=== PATIENT | female | born 1980 | race Caucasian/White ===

== ENCOUNTER 2016-09-03 20:09 | Emergency (ER) | payer BC ==
--- OUTSIDE RECORDS SUMMARY | 2016-09-03 20:37 | XMS REPORT | Continuity of Care Document ---
:1980 Author Organization [facility] ([facility]) Address [address] [place] [address] Phone [phone] Care Team Providers Name Role Phone Moises Dominguez Primary Care Provider [phone] Source Comments This disclosure is being made pursuant to the Care Everywhere program, applicable federal and state laws, and may not contain all informaitonavailable regarding this patient.[facility] ([facility]) Active Allergies and Adverse Reactions Allergen Noted Date Severity Reactions Comments Kiwi 10/31/2013 Angioedema Tongue swelling Other Agent 10/31/2013 Urticaria (Hives) Allergic to the sun Current Medications Prescription Sig. Disp. Refills Start Date End Date Status Take by mouth. Active multivitamin with minerals PO estradiol Take 1 tablet (2 mg 90 tablet 11 05/17/2016 Active (ESTRACE) 2 mg total) by mouth every tablet 12 hours. Increase to 1 Tab every 8 hours when instructed. progesterone (in Inject 1.5 mL 30 mL 6 07/22/2016 Active oil) (PROGESTERONE Intramuscularly IN OIL) 50 mg/mL Daily. 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 FROZEN CYCLE EPISODE IVF Cycle # 2 IOWAant? No This is a 36 y.o. year old female desiring transfer of cryopreserved embryos. complications: Placenta Previa, h/o 2 cesareans Frozen embryos are from autologous oocytes Outcomes of prior fresh IVF cycles: FT repeat Outcomes of prior frozen transfer: None Any difficulty with prior embryo transfer/ uterine sounding? No Comments: charles Degroot - repeat sounding performed after repeat c/s Special considerations: No Further testing needed? No TSH was 1.31 uIU/mL on 05/23/16 Progesterone level in previous cycle adequate? Yes Planned hormone use for endometrium preparation: Estrace - oral and Progesterone in oil - standard 50 mg PLAN FOR EMBRYO DISPOSITION Total number of cryopreserved embryos 11 0 pronuclear stage embryos 11 blastocyst stage embryos Recommendations: Thaw _1__ embryo(s) at the _blast__ stage. Transfer a maximum of _1__ embryos. CYCLE OUTCOME Preop Ultrasound Date: __07/08 (schedule baseline bonding agent ultrasound 5-7 days prior to blastocyst embryo transfer; 3-5 days prior to day 3 ET) Stripe thickness: __6.6 Cyst?___No ; (if cyst >10 mm order progesterone level= ) Other/Problems: Embryo Transfer Transfer of 1 embryos; x easy; Difficult Additional comments: _viable blast__ Other Outcome Test scheduled for (date) _07/22__ at (time & place) _[facility]__ [schedule 12 days after day 3 ET (may vary 11-15 days after ET)] [schedule 10 days after Blastocyst ET (may vary 9-13 days after ET)] Preferred method of test result notification: _X__ cell; [phone] test: ___ positive; QBhCG=__105___; Progesterone=__14.4___ (do not order if on vaginal progesterone) Cycle Review: This cycle, including ultrasounds and blood results, were reviewed and managed by a specialist in Reproductive Endocrinology. 03/11/2014 IVF Fresh Cycle #: 1 Flowsheet [id number] Ofelia Garcia Lupron Dual Trigger Protocol 1980 [address] [facility] [id number] Age: 34 y.o.: Weight: Filed Vitals: 03/11/14 0930 Weight: 83.6 kg (184 lb 4.9 oz) IOWArranty: No Antral Folicle #: >40 (10/31/2013): Metformin: No: TSH was 1.65 uIU/mL on 2013 Infertility Factors: ovulatory dysfunction, possible mild male factor; STD Testing: negative Counsyl Screening? Yes: Partner - Arun Garcia ( ) Results/f/u: NEGATIVE; 04/04/2014 [facility] Control Pill: Necon (for < 200 lbs) Last BCP (date): 05/06 Allergies: is allergic to kiwi and other agent. Lab: [facility]; Pharmacy: [facility] ; ([facility] patients preferred times for labs: 1000am ; U/ S:1000am ) Preferred Patient Contact #: [phone] . Menopur Vial=75 international units/vial (#vials _4_ total) Follistim cartridges: _x2_ 600 ___ 300; total=_1200_ international units Treatment Day 1 2 3 4 5 6 7 8 9 10 11 12 13 14 15 Date:05/09 14 15 16 17 18 19 20 21 22 23 24 25 26 27 FSH (Follistim) (IU) 225 225 225 150 150 150 150 150 150 - HMG (Menopur) (dose in vials) 1 1 1 1 2 2 - Antagon 250 mcg SQ 9:00 a.m. No No Yes Yes Yes No No No No No HCG only 10,000/5,000 HCG 1500 units IM + Lupron 2 mg SQ trigger (40 units) xx USGOR Lupron only 2 mg (40 units) LH + P4 (day after Lupron only trigger) MD reviewer LC [facility] RN initials AN do do JESSICA Patient notified clinic clinic clinic clinic Meds/Misc. E2 Total # > 10 / Total # 0/> 20 12/>20 12/>30 F O L L I C L E S U/S R (mm) 10 10 9 9 15 14x4 13 12x5 11 10 20 18x5 17x3 16 14x2 Total # > 10 / Total # 3/20 9/ >20 9/>30 U/S L (mm) 11x3 10x2 9 15x2 14x3 13 12x2 11 10 9 21 20x2 19 18x2 17 16 12 Endometrial Stripe (mm) 6.6 8.5 10 Luteal support: Progesterone in Oil 50 mg IM [facility]SS handout: provided/reviewed in IVF OR;___N/A hCG/Lupron trigger: date _05/18/14 /time _2029____; Retrieval date _05/20/14___/time:829 /report time: ; RTL report time : Test scheduled for (date) ___06/04/14 at (time & place) ____[facility] Preferred method of test result notification: __x_ cell; Message with results is OK "PIL"=Patient Information Line For Dual Trigger or Lupron Trigger only: Progesterone in Oil 50 mg IM beginning on day of egg retrieval. Continue until 8 weeks gestation. Estrace 2 mg. BID starting on evening of egg retrieval. Continue until 8 weeks gestation. 05/25/14 A9=3012 C8=393.1 06/10/1422=C9=1004 P4=53.8 06/17/14=E2=P4= Testing: Check E2 and P4 on Embryo Transfer day If a Blast ET, recheck levels 1) on test day; then 2) weekly through 6 weeks gestation. If a Day-3 ET, recheck levels 1) in one week; 2) on test day; then 3) weekly through 6 weeks gestation. Results Management: E2: IF E2 is ?200, remain on Estrace 2 mg BID through 8 weeks of gestation and check weekly. IF E2 is <200, ADD Climara patch 0.1 mg (1 patch) every 3 days. DO NOT need to repeat any further E2 levels. P4: IF P4 is ?20 and current dose of progesterone is 50 mg IM daily, then check level weekly through 6 weeks of gestation. Progesterone will continue through 8 weeks of gestation. IF P4 is <20 and already at 50 mg Progesterone in Oil, then increase Progesterone in Oil to 75 mg or add endometrin 100 mg BID vaginally and NO need to recheck any further levels. Estrogen and Progesterone Supplementation will always continue until 8 weeks gestation. Evaluation Date: 03/11/2014; Uterine Sounding: Depth: 7 cm; Curve: anterior Position: Anterior x Midline Posterior Passed easily: Yes; x No: *Use Long Darrin speculum* Cycle Plans Insemination plan:ICSI Inseminate all oocytes: Yes DREW/JUAN R: No Donor Sperm: No Embryo Culture: Day 5 Cryopreservation of embryos: Yes Stimulation Retrieval & Transfer Transfer of 1 embryos; x easy; Difficult Additional comments: __excellent hatching blast_ Other Special considerations: No Outcome test: ___ negative; _x__ positive; AN/JESSICA EHiOQ=484 ; Progesterone=73.9 ; Doxhckwwc=3836 . Ultrasounds and estradiol levels were reviewed and managed by a specialist in Reproductive Endocrinology. Preliminary required bloods: Female: HIV=NR HepBsAG=NR Hep C Ab=NR Sypilis IGG=NR Rubella=immune Varicella=+childhood exsposure Blood Type=A POS Partner: HIV=NR HepBsAG=NR Hep C Ab=NR Sypilis IGG=NR Information Summary signed: (date): 03/11/14 Infertility, female 03/07/2014 Infertility 12/05/2013 Currently Estimated Date of Delivery Comments Yes 03/31/2017 Most Recent Encounters Date Type Specialty Providers Description 08/29/2016 Telephone Gynecology Rubén, Chintan Lewis Subj: Nausea options DO 08/16/2016 Office Visit OBG Reproductive Semaj Wright, Dx: with Jordan Bobby MD history of Aybout El Sayed, infertility, first Sally, DISH WASHER trimester (Primary Dx) 08/16/2016 Hospital Encounter Obstetrics Monse Lr MD Dx: Supervision of with history of infertility in first trimester 08/02/2016 Office Visit OBG Reproductive Semaj Wright Dx: with Jordan Bobby MD history of Aybout El Sayed, infertility, first Sally, DISH WASHER trimester (Primary Dx) 08/02/2016 Hospital Encounter Obstetrics Sully Conti, Dx: Supervision of MD with history of infertility in first trimester 07/25/2016 Office Visit Pathology Monse Lr MD Chief Comp: Patient Lab Services, Pfp Reported Reason For Visit 07/25/2016 Office Visit OBG Reproductive Monse Lr MD Dx: Supervision of with history of infertility in first trimester 07/25/2016 Telephone OBG Reproductive Monse Lr MD Dx: Supervision of with history of infertility in first trimester (Primary Dx) 07/22/2016 Office Visit Pathology Rama Arriola Chief Comp: Patient MD Joshua Reported Reason For Lab Services, Pfp Visit 07/22/2016 Office Visit OBG Reproductive Rama Arriola Dx: Encounter for MD Joshua assisted reproductive fertility cycle (Primary Dx) 07/22/2016 Pharmacy Visit 07/22/2016 Refill OBG Reproductive Rama Arriola Dx: Encounter for MD Joshua assisted reproductive fertility cycle (Primary Dx) 07/22/2016 Orders/Notes Obstetrics Mary Hernandez, Dx: Encounter for FERNANDA Zavala assisted reproductive fertility cycle (Primary Dx) 07/21/2016 Pharmacy Visit 07/13/2016 Hospital Encounter Obstetrics Semaj Wright, Dx: Encounter for Jordan Bobby MD assisted reproductive fertility cycle 07/13/2016 Hospital Encounter OBG Reproductive Semaj Wright, Dx: Female Jordan Bobby MD infertility due to ovulatory disorder (Primary Dx) 07/13/2016 Surgery OBG Reproductive Semaj Wright, IVF-CRYOPRESERVED Jordan Bobby MD EMBRYO TRANSFER 07/08/2016 Office Visit OBG Reproductive Rama Arriola Dx: MD Joshua examination or test, unconfirmed (Primary Dx) 07/08/2016 Hospital Encounter Obstetrics Rama Arriola Dx: Encounter for MD Joshua assisted reproductive fertility cycle 06/27/2016 Office Visit Flip Li MD Chief Comp: Patient Jchc, Specialty Reported Reason For Clinic Visit 06/17/2016 Pharmacy Visit 06/17/2016 Orders/Notes OBG Reproductive Rama Arriola Dx: Encounter for MD Joshua assisted reproductive fertility cycle (Primary Dx) 06/17/2016 Refill OB Reproductive Rama Arriola Dx: Encounter for MD Joshua assisted reproductive fertility cycle (Primary Dx) Immunizations Name Dates Previously Given Next Due Influenza, quadrivalent PF 12/09/2014 Tdap 11/18/2014 Social History Tobacco Use Types Packs/Day Years Used Date Former Smoker Cigarettes 0.3 Started: 10/31/1998 Smokeless Tobacco: Never Used Comments:was using e-cig. has quit since 03/2014 Alcohol Use Drinks/Week oz/Week Comments Yes Last Filed Vital Signs Vital Sign Reading Time Taken Blood Pressure 127/69 08/16/2016 1:59 PM CDT Pulse 81 08/16/2016 1:59 PM CDT Temperature 36.5 C (97.7 F) 07/13/2016 1:16 PM CDT Respiratory Rate 16 05/17/2016 2:10 PM TRACK MAINTAINER Height 1.62 m (5' 3.78") 08/16/2016 1:59 PM CDT Weight 89.3 kg (196 lb 13.9 oz) 08/16/2016 1:59 PM CDT Body Mass Index 34.03 08/16/2016 1:59 PM CDT Oxygen Saturation 97% 07/13/2016 1:16 PM CDT Plan of Care Health Maintenance Due Date Last Done Comments Hepatitis B Vaccine (1 of 3 - Primary Series) 1980 Lipid Disorder Screening 01/23/1998 MMR Vaccine 01/23/1998 Varicella Vaccine (1 of 2 - Adult - No Evidence of 01/23/1998 Immunity) Cervical Cancer Screening 01/23/2010 Influenza Vaccine: Seasonal (Season Ended) 2016 12/09/2014 Td Vaccine 11/18/2024 11/18/2014 Tdap Vaccine Completed 11/18/2014 Procedures from Last 3 Months Procedure Name Priority Date/Time Associated Diagnosis Comments US NDL PLMT IMG S&I Routine 07/13/2016 2:24 Female infertility Results for this PM CDT due to ovulatory procedure are in disorder the results section. EMBRYO TR Routine 07/13/2016 2:24 Female infertility Results for this INTRAUTERINE PM CDT due to ovulatory procedure are in disorder the results section. IVF-CRYOPRESERVED 07/13/2016 1:45 Encounter for EMBRYO TRANSFER PM CDT assisted reproductive fertility cycle Results from Last 3 Months CERAMIC DESIGN ENGINEER ULTRASOUND (08/16/2016 1:46 PM)Only the most recent of3 resultswithin the time period is included. Narrative Obstetric Ultrasound Report Early Limited Survey Referral from: Dr. Rama Michaud MD ([id number]) [facility] [address] [place], [place] OB Clinic IVF/E ndocrine PATIENT INFORMATION: Name: OFELIA AGRCIA MR#: [id number] Age:36 y/oExam Date: 08/16/2016 :1980Visit #: 2 LMP:Not Available Location:[facility] - Endocrine # Fetuses: 1 INDICATION:S/p cryo ET of single embryo, viability. APPROACH: Transvaginal. DATING: Assigned GA GA by LMPGA by Ultrasound(Conception ANIL NA7 04/02 wks7 7 wks 03/31/17 GESTATION: Sac Tira-Rump Heart MeasurementYolk Sac Length Rate ------- JeenlqaRxyivay03.0mm (7 7 wks) 141 bpm Gestational Sac: Seen. Normal position within uterus. Yolk Sac:Size: 4.3 mm. PLACENTA/UMBILICAL CORD: Placenta is diffuse UTERUS: Normal OVARIES: Right: NormalLeft: Normal ADNEXAL FINDINGS: Adnexal mass was not noted. CERVIX: Normal. CUL-DE-SAC: No free fluid noted in the Cul-de-sac. COMMENTS: There is a single viable intrauterine seen.The embryonic pole measures 7 weeks 1 day and is consistent with dates.The cardiac activity aidgineq427 BPM.The ovaries appear normal bilaterally with good blood flow.No free fluid in the cul de sac. Dr. Monse Lr , ([id number]) Stone Driller 1: Ines Jones RDMS,T Stone Driller 2: Thalia Acosta RDMS Procedure Note Amol, Incoming Imaging Results - MonAugust 17, 2016 9:50 AM CDT Obstetric Ultrasound Report Early Limited Survey Referral from: Dr. Rama Michaud MD ([id number]) [facility] Department of Obstetrics &Gynecology [address] [place], [place] OB Clinic IVF/Endocrine PATIENT INFORMATION: Name: OFELIA GARCIA MR#: [id number] Age: 36 y/o Exam Date: 08/16/2016 : 1980 Visit #: 2 LMP: Not Available Location: [facility] - Endocrine # Fetuses: 1 INDICATION: S/p cryo ET of single embryo, viability. APPROACH: Transvaginal. DATING: Assigned GA GA by LMP GA by Ultrasound (Conception ANIL NA 7 04/02 wks 7 07/01 wks 03/31/17 GESTATION: Sac Tira-Rump Heart Measurement Yolk Sac Length Rate ------- Present Present 11.0mm (7 04/02 wks) 141 bpm Gestational Sac: Seen. Normal position within uterus. Yolk Sac: Size: 4.3 mm. PLACENTA/UMBILICAL CORD: Placenta is diffuse UTERUS: Normal OVARIES: Right: Normal Left: Normal ADNEXAL FINDINGS: Adnexal mass was not noted. CERVIX: Normal. CUL-DE-SAC: No free fluid noted in the Cul-de-sac. COMMENTS: There is a single viable intrauterine seen. The embryonic pole measures 7 weeks 1 day and is consistent with dates. The cardiac activity measures 141 BPM. The ovaries appear normal bilaterally with good blood flow. No free fluid in the cul de sac. Dr. Monse Lr , ([id number]) Stone Driller 1: Ines Jones RDMS,T Stone Driller 2: Thalia Acosta RDPR HCG - , SERUM, QUANTITATIVE (07/25/2016 7:35 AM)Only the most recent of2 resultswithin the time period is included. Component Value Range Screen, Quantitative, Blood 234Comment: mIU/mL This assay recognizes the intact HCG "holo-hormone" produced in but may not recognize other forms of HCG (e.g., "nicked HCG") produced in other conditions such as tumors of the germs cells, ovaries, bladder, pancreas, stomach, lungs, and liver. QUANTITATIVE HCG Weeks of gestation Expected range mIU/mL 3 weeks5 - 72 4 weeks 10 - 708 5 - 8, 245 6 iqddn057 - 32, 177 7 weeks 4,059 - 153, 767 8 weeks31,366 - 149, 094 9 weeks59,109 - 135, 901 10 weeks 44,186 - 170, 409 12 weeks 27,107 - 201, 165 14 weeks 24,302 - 93,646 15 weeks 12,540 - 69,747 16 weeks 8,904 - 55, 332 17 weeks 8,240 - 51, 793 18 weeks 9,649 - 55, 271 Non- females:< 3 mIU/mL Males: < 2 mIU/mL Healthy non- wilber-menopausal and post-menopausal females may have HCG values up to 8 mIU/mL.Heterophile antibodies present in the serum of some patients may cause a false positive result in this assay. Specimen Blood PROGESTERONE (07/22/2016 7:58 AM) Component Value Range Progesterone 14.4Comment: ng/mL Reference ranges: Adult Females: Follicular Phase 0.2 - 1.5 ng/mL Ovulation Phase0.8 - 3.0 ng/mL Luteal Phase 1.7 - 27.0 ng/mL Postmenopausal Females: <0.2 - 0.8 ng/mL Pediatric Females: <2 years old:0.87 - 3.37 ng/mL 2-9 years old: 0.20 - 0.24 ng/mL 10-17 years old: adult levels generally achieved by puberty Adult Males: 0.2 - 1.4 ng/mL <2 years old:0.87 - 3.37 ng/mL 2-9 years old: <0.15 ng/mL 10-17 years old: adult levels generally achieved by puberty Reference: Marques BM, Tabby SH, Evelina N, et al; Serum 17-alpha- hydroxyprogesterone, progesterone, estradiol, and testosterone in the diagnosis and management of congenital adrenal hyperplasia. J Pediatr 1974;[id number] Specimen Blood IVF CASE (07/13/2016 2:24 PM) Jordan Cummings MD 07/13/20162:24 PM IVF CASE: IVF-CRYOPRESERVED EMBRYO TRANSFER IVF Operations/Procedures Embryo Transfer Cycle # 2 Transfer Date of Procedure: 07/13/2016 Attending Staff Flaco Khoury M.D. Resident/Fellow Fernanda Soto Assistants June May Preoperative Diagnosis Infertility Operation/Procedure Cryopreserved embryo transfer under ultrasound guidance. Postoperative Diagnosis Same as above Indications Infertility Consent for Operation or Procedure Immediately prior to the start of the operation/procedure an active 'time out' was performed by all members of the team.The patient was identified using two patient identifiers, the correct side and site were identified (if applicable), the operation/procedure was agreed upon, the correct patient position was identified (if applicable) and the availability of correct implants and any special equipment or special requirements was confirmed (if applicable). I reviewed the patient's current cycle consent, the embryo numbers, and quality with the patient.Any change in the consent directive is documented below. Description of Operation/Procedure The embryo stage and grade was reviewed with the patient.A sterile speculum was placed and the cervix was copiously washed with sterile saline.A Oliver catheter was loaded with 1 embryo(s) which was/were expelled 1.5-2.0 cm from the fundus of the uterus under continuous ultrasound guidance.The speculum was removed and after 10 minutes the patient was returned to the recovery room. Findings The embryos that were transferred had the following stage and grades. Viable blast Immediately prior to the start of the operation/procedure an active 'time out' was performed by all members of the team.The patient was identified using two patient identifiers, the correct side and site were identified (if applicable), the operation/procedure was agreed upon, the correct patient position was identified (if applicable) and the availability of correct implants and any special equipment or special requirements was confirmed (if applicable). I reviewed the patient's current cycle consent, the embryo numbers, and quality with the patient.Any change in the consent directive is documented below. IVF ULTRASOUND GUIDED EMB TRANSFER (07/13/2016 1:05 PM)
[2016-09-03] MEDS ORDERED: AMOXICILLIN TRIHYDRATE 250 MG CAPSULE PO ONE (20:49)
[2016-09-03] MEDS ORDERED: AMOXICILLIN TRIHYDRATE 250 MG CAPSULE ONE (20:58)
--- NOTE | 2016-09-03 21:00 | ERNOTE ---
ENT HPI Date of Service: 09/03/16 Presenting Symptoms: other - sore throat and tailbone pain Time Seen by Provider: 09/03/16 20:30 Source: patient Exam Limitations: no limitations - Immun/Allergies/Home Medications Immunizations: IMMUNIZATION HX History of Influenza Vaccine No Hx Pneumococcal Vaccination No Allergies/Adverse Reactions: Allergies Allergy/AdvReac Type Severity Reaction Status Date / Time kiwi Allergy Swelling Verified 06/29/15 03:42 of Tongue progesterone Allergy Hives Verified 09/03/16 20:24 sun Allergy Hives Uncoded 01/21/15 05:18 Home Medications: HOME MEDICATIONS Amoxicillin 500 mg PO BID #20 capsule 09/03/16 [Last Taken Unknown] Doxylamine Succinate [Unisom] 12.5 mg PO DAILY 09/03/16 [Last Taken Unknown] Folic Acid 0.4 mg PO DAILY 09/03/16 [Last Taken Unknown] Pyridoxine HCl (Vitamin B6) [Vitamin B-6] 12.5 mg PO TID 09/03/16 [Last Taken Unknown] - History of Present Illness Narrative: 36-year-old female who is 10 weeks presents to the emergency room for very sore throat and tailbone sacral area pain. Patient states that she was having morning sickness she brought her right leg up and suddenly felt shift down by her sacrum and has had pain there since then. She denies any abdominal pain contractions or leaking of any fluid Date (Duration): 09/04/16 Severity: Present: mild ENT Location: Present: throat Prearrival Treatment: Present: no prearrival treatment Modifying Factors - Improves: Reports: nothing Modifying Factors - Worsens: Reports: nothing Associated Symptoms - ENT: Reports: sore throat. Denies: fever, malaise, voice change, facial pain/swelling, headache Review of Systems - Review of Systems Constitutional: Present: See HPI EYE: Present: no symptoms reported ENT: Present: See HPI, sore throat Respiratory: Present: no symptoms reported Cardiology: Present: no symptoms reported Gastrointestinal/Abdominal: Present: no symptoms reported Genitourinary: Present: no symptoms reported Musculoskeletal: Present: See HPI, back pain, muscle pain Skin: Present: no symptoms reported Neurological: Present: no symptoms reported Endocrine: Present: no symptoms reported Hematologic/Lymphatic: Present: no symptoms reported Psych: Present: no symptoms reported All Other Systems: All systems neg except as marked - Patient's Past Medical History Patient History - Medical: No pertinent hx, Other Patient History - Cardiac/Respiratory: No pertinent hx Patient History - Cancer: No Hx of Cancer Patient History - Surgical Procedures: Patient History - Other: None LMP (females 10-50): unknown LMP (Calendar): 03/31/15 - Family History Father Family History - Medical: Diabetes Type 2 - Social History Living Situations: home Abuse History: No History of abuse Psych History: No pertinent hx Smoking Status: Former smoker Have you smoked in the past 12 months: No Alcohol Use: none Drug Use: none - Immunizations Hx Pneumococcal Vaccination: No History of Influenza Vaccine: No Physical Exam - Physical Exam Narrative: patient have a very erythematous throat and pharyngeal area has pain where her piriformis muscle is. pain is recreated with some bending and twisting. General Appearance: Present: wd/wn, alert, mild distress Eye Exam: Normal inspection: bilateral Ears, Nose, Throat: Present: normal except -, pharyngeal erythema, pharyngeal swelling, tonsillar exudate, tonsillar swelling. Absent: abnormal TM (R), abnormal TM (L), sinus pain/drainage Neck: Present: normal inspection, nontender, supple, full range of motion, lymphadenopathy (R), lymphadenopathy (L) Respiratory: Present: no respiratory distress, normal breath sounds, no accessory muscle use, chest nontender, lungs clear Cardiovascular/Chest: Present: regular rate, rhythm, no murmur, normal peripheral pulses Peripheral Pulses: N=norm/S=strong/W=weak/B=bound/A=absent: Dorsalis-pedis (R): Normal, Dorsalis-pedis (L): Normal Gastrointestinal/Abdominal: Present: normal bowel sounds, nontender, soft Back Exam: Present: no CVA tenderness, decreased range of motion, muscle spasm, other - sacral pain Extremity Exam: Present: normal inspection, normal range of motion, no edema Neurological Exam: Present: alert, oriented, normal mood/affect, no motor/ sensory deficits Skin Exam: Present: normal color, warm/dry ED Progress - Results and Orders Patient's Lab Results:: I have reviewed the patient's lab results. Results and Orders: positive for strep - Vital Signs Patient's Vital Signs:: I have reviewed the patient's vital signs. Vital Signs: Vital Signs 09/03/16 20:18 Temperature 36.8 C Pulse Rate 106 H Respiratory 18 Rate Blood Pressure 136/98 O2 Sat by Pulse 99 Oximetry - Progress/Reassessment Chief Complaint: Sore Throat Progress:: Improved Plan - Plan Plan: Patient was given instructions on how to do piriformis muscle stretches. I feel confident that this patient has a strain of her piriformis muscle from being in an awkward position and then vomiting. After speaking with OB they encouraged the use of Biofreeze rest and ice. Patient also instructed that she could go have a massage to the area to help with the muscle pain. I was able to perform and educate her on how to stretch her piriformis muscle and she did feel some relief after little bit of stretching. Departure Clinical Impression: Strep throat Strain of piriformis muscle Qualifiers: Encounter type: initial encounter Laterality: left Qualified Code(s): S76.312A - Strain of muscle, fascia and tendon of the posterior muscle group at thigh level, left thigh, initial encounter - Departure Disposition: Home Follow Up Needed Condition: Stable Instructions: Piriformis Syndrome With Rehab-[facility], Strep Throat, Easy-to- Read Additional Instructions: Continue any previous home medications. Return to the emergency room if her condition changes or worsens. Follow-up with your primary care physician in the next 2-3 days if needed. Referrals: Ariel Osorio DO [Primary Care Provider] - Prescriptions: Amoxicillin 500 mg PO BID #20 capsule
[2016-09-04 02:31] VITALS: BP 136/83
== END 2016-09-03 21:26 | disposition home or self-care (01) ==
LOC: ER 20:09
DX: J02.0 Streptococcal pharyngitis (principal); S76.312A Strain of muscle, fascia and tendon of the posterior muscle group at thigh level, left thigh, initial encounter; Z33.1 Pregnant state, incidental; Z3A.10 10 weeks gestation of pregnancy